=== PATIENT | male | born 1980 | race Two or more races ===

== ENCOUNTER 2017-07-30 13:54 | Emergency (ER) | payer SELFPAY ==
[~2017-07-30] VITALS: Ht 182.9 cm; Wt 95.5 kg
[2017-07-30 14:02] VITALS: BP 127/79
== END 2017-07-30 14:54 | disposition left against medical advice (07) ==
LOC: ED 14:48
DX: F10.120 Alcohol abuse with intoxication, uncomplicated (principal); F19.10 Other psychoactive substance abuse, uncomplicated; Z59.0 Homelessness; Z76.5 Malingerer [conscious simulation]
CPT/HCPCS: 99283